=== PATIENT | male | born 1940 | race American Indian/Alaskan Native ===

== ENCOUNTER 2018-08-02 10:33 | Outpatient (CLI) | payer MEDICARE, OTHER ==
[2018-08-02 11:33] LABS: Chol/HDL Ratio 2.63 %
[2018-08-05 12:56] LABS: Vitamin D, 25-OH, D2 <4 ng/mL
== END 2018-08-02 10:34 | disposition home or self-care (01) ==
LOC: LAB 10:33
PROVIDERS: ATTEND Internal Medicine
DX: E78.2 Mixed hyperlipidemia (principal); E55.9 Vitamin D deficiency, unspecified; R73.03 Prediabetes; I10 Essential (primary) hypertension
CPT/HCPCS: 36415; 80061; 82306; 83036

== ENCOUNTER 2018-12-11 08:36 | Outpatient (CLI) | payer MEDICARE, OTHER ==
[2018-12-11 09:31] LABS: Basophils # (Auto) 0.1 K/mm3 (0.0-0.1); Basophils % (Auto) 2.7 % (0.0-1.8); Hematocrit 44.3 % (35.5-45.6); Hemoglobin 15.1 gm/dl (11.8-15.2); Lymphocytes # (Auto) 1.4 K/mm3 (1.2-5.4); Lymphocytes % (Auto) 49.3 % (13.4-35.0); Mean Corpuscular HGB Conc 34 % (32-34); Mean Corpuscular Volume 96 fl (84-94); Monocytes # (Auto) 0.3 K/mm3 (0.0-0.8); Monocytes % (Auto) 9.1 % (0.0-7.3); Platelet Count 147 K/mm3 (140-440); Red Blood Count 4.63 M/mm3 (3.65-5.03)
[2018-12-11 09:40] LABS: Albumin 4.5 g/dL (3.9-5); Calcium 9.4 mg/dL (8.4-10.2); Chol/HDL Ratio 2.45 %
[2018-12-14 13:31] LABS: Vitamin D, 25-OH, D2 <4 ng/mL
== END 2018-12-11 08:37 | disposition home or self-care (01) ==
LOC: LAB 08:36
PROVIDERS: ATTEND Internal Medicine
DX: Z13.29 Encounter for screening for other suspected endocrine disorder (principal); Z13.21 Encounter for screening for nutritional disorder; E55.9 Vitamin D deficiency, unspecified; E78.2 Mixed hyperlipidemia; R73.03 Prediabetes; I10 Essential (primary) hypertension
CPT/HCPCS: 36415; 80053; 80061; 82306; 82607; 83036; 84443; 85025

== ENCOUNTER 2020-02-05 15:05 | Outpatient (CLI) | payer MEDICARE, OTHER ==
[2020-02-05 15:51] LABS: Basophils % (Auto) 0.9 % (0.0-1.8); Eosinophils % (Auto) 1.1 % (0.0-4.3); Hematocrit 45.3 % (35.5-45.6); Hemoglobin 15.4 gm/dl (11.8-15.2); Lymphocytes # (Auto) 1.6 K/mm3 (1.2-5.4); Lymphocytes % (Auto) 41.4 % (13.4-35.0); Mean Corpuscular HGB Conc 34 % (32-34); Mean Corpuscular Volume 93 fl (84-94); Monocytes # (Auto) 0.4 K/mm3 (0.0-0.8); Monocytes % (Auto) 9.3 % (0.0-7.3); Platelet Count 154 K/mm3 (140-440); Red Blood Count 4.86 M/mm3 (3.65-5.03); Red Cell Distribution Width 14.7 % (13.2-15.2)
[2020-02-05 16:04] LABS: Alanine Aminotransferase 19 units/L (7-56); Albumin 4.2 g/dL (3.9-5); BUN/Creatinine Ratio 12; Blood Urea Nitrogen 13 mg/dL (9-20); Calcium 9.7 mg/dL (8.4-10.2); Chol/HDL Ratio 2.39 %; HDL Cholesterol 69 mg/dL (40-59); Hemolysis Index 4; LDL Cholesterol,Direct 91 mg/dL (50-130)
== END 2020-02-05 15:06 | disposition home or self-care (01) ==
LOC: LAB 15:05
PROVIDERS: ATTEND Internal Medicine
DX: Z00.00 Encounter for general adult medical examination without abnormal findings (principal); E78.2 Mixed hyperlipidemia; R73.03 Prediabetes; Z13.29 Encounter for screening for other suspected endocrine disorder
CPT/HCPCS: 36415; 80053; 80061; 83036; 84443; 85025

== ENCOUNTER 2021-02-18 14:39 | Outpatient (CLI) | payer MEDICARE, OTHER ==
--- NOTE | 2021-02-18 15:52 | XRay Report ---
CHEST 2 VIEWS INDICATION / CLINICAL INFORMATION: Shortness of breath. COMPARISON: 05/20/11. FINDINGS: SUPPORT DEVICES: None. HEART / MEDIASTINUM: The heart size and pulmonary vasculature are normal. There is moderate calcifica tion in the aortic arch without aneurysm. LUNGS / PLEURA: The lungs are mildly hyperinflated but clear. No new pulmonary or pleural abnormality . No pneumothorax. ADDITIONAL FINDINGS: No significant additional findings. IMPRESSION: Probable emphysema without other significant abnormality. Signer Name: Antonio Snider MD Signed: 02/18/2021 3:47 PM Workstation Name: [id number]
== END 2021-02-18 14:40 | disposition home or self-care (01) ==
LOC: XRAY 14:39
PROVIDERS: ATTEND Internal Medicine
DX: R06.02 Shortness of breath (principal)
CPT/HCPCS: 71046